=== PATIENT | female | born 1985 | race Two or more races ===

== ENCOUNTER 2021-06-03 15:13 | Emergency (ER) | payer SELFPAY ==
[~2021-06-03] VITALS: Ht 165.1 cm; Wt 68.0 kg
[2021-06-03] MEDS ORDERED: IV NORMAL SALINE 1000ML BAG 1,000 ML IV ONE (16:00)
--- NOTE | 2021-06-03 16:50 | PHYS DOC ---
Past Medical History Past Surgical History: No Surgical History General Adult EDM: Chief Complaint: NEAR SYNCOPE HPI: HPI: Patient is a 36 year old female who presents to the ED today to be evaluated after having a syncope episode while donating plasma. Patient denies any symptoms in the ED, denies any chest pain, shortness of breath, fever, denies any chance she is . Review of Systems: Review of Systems: Constitutional: Denies fever or chills. [] Eyes: Denies change in visual acuity. [] HENT: Denies nasal congestion or sore throat. [] Respiratory: Denies cough or shortness of breath. [] Cardiovascular: Denies chest pain or edema. [] GI: Denies abdominal pain, nausea, vomiting, bloody stools or diarrhea. [] : Denies dysuria. [] Musculoskeletal: Denies back pain or joint pain. [] Integument: Denies rash. [] Neurologic: Denies headache, focal weakness or sensory changes. [] Psychiatric: Denies depression or anxiety. [] Heart Score: C/O Chest Pain: N/A Risk Factors: Risk Factors: DM, Current or recent (<one month) smoker, HTN, HLP, family history of CAD, obesity. Risk Scores: Score 0 - 3: 2.5% MACE over next 6 weeks - Discharge Home Score 4 - 6: 20.3% MACE over next 6 weeks - Admit for Clinical Observation Score 7 - 10: 72.7% MACE over next 6 weeks - Early Invasive Strategies Current Medications: Current Medications Medications (Trade) Dose Ordered Sig/Faisal Start Time Stop Time Status Last Admin Dose Admin Sodium Chloride 1,000 ml @ 1,000 mls/hr 1X ONCE 06/03/21 16:00 06/03/21 16:59 06/03/21 16:15 1,000 MLS/HR Allergies: Allergies: Allergies Coded Allergies Type Severity Reaction Last Updated Verified No Known Drug Allergies 06/03/21 No Physical Exam: PE: Constitutional: Well developed, well nourished, no acute distress, non-toxic a ppearance. [] HENT: Normocephalic, atraumatic, bilateral external ears normal, oropharynx moist, no oral exudates, nose normal. [] Eyes: PERRLA, EOMI, conjunctiva normal, no discharge. [] Neck: Normal range of motion, no tenderness, supple, no stridor. [] Cardiovascular:Heart rate regular rhythm, no murmur [] Lungs & Thorax: Bilateral breath sounds clear to auscultation [] Abdomen: Bowel sounds normal, soft, no tenderness, no masses, no pulsatile masses. [] Skin: Warm, dry, no erythema, no rash. [] Back: No tenderness, no CVA tenderness. [] Extremities: No tenderness, no cyanosis, no clubbing, ROM intact, no edema. [] Neurologic: Alert and oriented X 3, normal motor function, normal sensory function, no focal deficits noted. Cranial nerves II through XII intact Psychologic: Affect normal, judgement normal, mood normal. [] Current Patient Data: Labs: Laboratory Tests Test 06/03/21 16:15 Glucose (Fingerstick) 138 mg/dL (70-99) H Vital Signs: Vital Signs Date Time Temp Pulse Resp B/P (MAP) Pulse Ox O2 Delivery O2 Flow Rate FiO2 06/03/21 15:18 98.1 73 18 97/61 (73) 99 Room Air 98.1 EKG: EK interpreted by Dr. Ernandez sinus rhythm heart rate 85 no STEMI [] Radiology/Procedures: Radiology/Procedures: [] Course & Med Decision Making: Course & Med Decision Making Pertinent Labs and Imaging studies reviewed. (See chart for details) This 36-year-old female patient presented to the ED today to be evaluated after having a syncope episode while donating plasma. Patient has no complaints in the ED. Wants to leave. EKG is negative. Blood glucose 138. Vitals on arrival to the ED temperature was 98.1, heart rate 73, respiration 18 on room air, blood pressure was 97/61, O2 sats 99%, patient was given a liter of fluid in the ED, blood pressure is 113/64, heart rate 69, she has tolerated p.o. intake, she is requesting to be discharged. She was provided instructions to follow-up with the PCP in the course of this week Chris Disclaimer: Chris Disclaimer: This electronic medical record was generated, in whole or in part, using a voice recognition dictation system. Departure Departure Impression: Primary Impression: Syncope Qualified Codes: R55 - Syncope and collapse Disposition: 01 HOME / SELF CARE / HOMELESS Condition: STABLE Referrals: UNKNOWN PCP NAME (PCP) Follow-up with your primary care doctor in the next 7 days Patient Instructions: Syncope, [id number] Additional Instructions: Please follow-up with your primary care doctor in the next 1 to 2 weeks. Ensure you hydrate yourself well. Come back to the ED at any point you have concerning symptoms CYNTHIA MACAIS APRN Jun 03, 2021 16:50
[2021-06-03 16:56] VITALS: BP 113/64
--- NOTE | 2021-06-04 07:44 | EKG ---
[facility] [address] [place] [address] Test Date: 2021-06-03 Test Time: 15:49:45 Pat Name: KELLIE CANALES Department: Room: Gender: F [employer]: : 1985 Requested By: CITLALY AGUILAR Order Number: [id number] Reading MD: Measurements Intervals [place] Rate: 85 P: 39 CA: 132 QRS: 48 QRSD: 78 T: 11 QT: 366 QTc: 436 Interpretive Statements SINUS RHYTHM NORMAL ECG RI6.02 No previous ECG available for comparison
== END 2021-06-03 16:56 | disposition home or self-care (01) ==
LOC: ER 15:13
DX: R55 Syncope and collapse (principal)
CPT/HCPCS: 82962; 93005; 96360; 99283; J7030